=== PATIENT | female | born 1995 | race Caucasian/White ===

== ENCOUNTER 2018-01-03 21:29 | Emergency (ER) | payer OTHER ==
[2018-01-03 21:46] VITALS: BP 116/63
--- NOTE | 2018-01-03 21:58 | UC ---
Laceration HPI - HPI Summary HPI Summary: 22 yo female presents with laceration to left ring finger sustained 5 days ago. She tells me that she was using scissors and they slipped and sliced her finger. She went to [facility] and they glued it and bandaged it for her. She is here today because the glue came off and she feels the wound is still open. Has not had any fever/chills, drainage, bleeding, or pain. - History Of Current Complaint Chief Complaint: UCUpperExtremity Stated Complaint: FINGER LAC Time Seen by Provider: 01/03/18 21:55 Hx Obtained From: Patient Hx Last Menstrual Period: 12/17/17 Laceration Location: Finger Pain Intensity: 0 - Allergies/Home Medications Allergies/Adverse Reactions: Allergies Allergy/AdvReac Type Severity Reaction Status Date / Time No Known Allergies Allergy Verified 01/03/18 21:46 Home Medications: Home Medications NK [No Home Medications Reported] 01/03/18 [History Confirmed 01/03/18] PMH/Surg Hx/FS Hx/Imm Hx - Additional Past Medical History Additional PMH: None - Surgical History Surgical History: None - Family History Known Family History: Positive: None - Social History Occupation: Student Lives: With Family Alcohol Use: Weekly Substance Use Type: None Smoking Status (MU): Current Some Day Smoker Review of Systems Constitutional: Negative Skin: Other - Laceration left ring finger Respiratory: Negative Cardiovascular: Negative Neurovascular: Negative Musculoskeletal: Negative Neurological: Negative Psychological: Negative All Other Systems Reviewed And Are Negative: Yes Physical Exam - Summary Physical Exam Summary: GENERAL: NAD. WDWN. No pain distress. SKIN: LEFT RING FINGER: Dorsal aspect with 5mm linear laceration overlying the PIP approx 2mm in width with healed dermis. No streaking, bleeding, or drainage. NTTP NECK: Supple. Nontender. CHEST: No accessory muscle use. Breathing comfortably and in no distress. CV: Pulses intact. Cap refill <2seconds NEURO: Alert. PSYCH: Age appropriate behavior. Triage Information Reviewed: Yes Vital Signs: Initial Vital Signs Temp 98.9 F 01/03/18 21:41 Pulse 77 01/03/18 21:41 Resp 12 01/03/18 21:41 BP 116/63 01/03/18 21:41 Pulse Ox 99 01/03/18 21:41 Vital Signs Reviewed: Yes Laceration Repair - Laceration Repair 1 Description: Linear Laceration Size After Repair: Length (cm) - 0.5 Modified For Repair: No Cleansing Completed Via Routine Prep: Yes Closure Material: Skin Adhesive Laceration Course/Dx - Course/Dx Course Of Treatment: Wound was cleansed with 50mL NS. Dermabond applied and further approximated. Wound was bandaged with a band-aid and finger splint. - Differential Dx - Laceration/Wound Provider Diagnoses: Left ring finger laceration Discharge - Sign-Out/Discharge Documenting (check all that apply): Patient Departure All imaging exams completed and their final reports reviewed: No Studies - Discharge Plan Condition: Stable Disposition: HOME Patient Education Materials: Laceration (ED), Skin Adhesive Care (ED) Referrals: [facility],Ezequiel [Primary Care Provider] - Additional Instructions: If you develop a fever, shortness of breath, chest pain, new or worsening symptoms - please call your PCP or go to the ED. - Billing Disposition and Condition Condition: STABLE Disposition: Home - Attestation Statements Provider Attestation: Per institutional requirements, I have reviewed the chart, however, I was not consulted specifically or made aware of this patient by the midlevel provider. I did not personally evaluate, interact with , or disposition this patient.
== END 2018-01-03 22:05 | disposition home or self-care (01) ==
LOC: UCEAST 21:29
DX: S61.215A Laceration without foreign body of left ring finger without damage to nail, initial encounter (principal); F17.200 Nicotine dependence, unspecified, uncomplicated; W45.8XXA Other foreign body or object entering through skin, initial encounter; Y93.9 Activity, unspecified; Y92.9 Unspecified place or not applicable
CPT/HCPCS: 12001; 99201; G0463

== ENCOUNTER 2018-10-21 19:42 | Emergency (ER) | payer OTHER ==
[2018-10-21] MEDS ORDERED: NS 0.9% 1000 ML** 1,000 ML IV ONE (21:04)
[2018-10-21] MEDS ORDERED: Metoclopramide IV* 5 MG/ML 2 ML VIAL IV SLOW PU ONE (21:05)
[2018-10-21] MEDS ORDERED: diPHENhydraMINE IV* 50 MG/ML 1 ml VIAL (BENADRYL) SLOW PUSH ONE (21:05)
--- NOTE | 2018-10-21 21:06 | ED ---
Headache - HPI Summary HPI Summary: Patient is a 23 y/o F presenting to ED with complaints of ESTEVES onsetting around 1 hour ago today. She reports that she was [place] when Sx onset. Patient reports that ESTEVSE is at the posterior of her head. She notes that the initial ESTEVES severity was a 9/10. ESTEVES lessened in severity, and at present she rates ESTEVES 3/10. She denies N/V and fever. Patient reports a similar episode of ESTEVES two days ago, stating that this ESTEVES episode lasted 10 minutes and spontaneously resolved. She denies PMHx and any prior HAs otherwise. 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 Patient notes that movement of head aggravates her Sx. LNMP was two weeks ago. On triage, pain is rated 8/10. Home medications and allergies are reviewed. - History Of Current Complaint Chief Complaint: EDHeadache Stated Complaint: "HEADACHE PER PT" Time Seen by Provider: 10/21/18 20:54 Hx Obtained From: Patient Hx Last Menstrual Period: 12/17/17 Onset/Duration: Started hours ago, Still Present Initially Headache Was: Initial Pain Scale(0-10)= - 9/10, Severe Currently Pain Is: Current Pain Scale(0-10)= - 3/10, Mild Timing: Hours Location of Headache: Occipital Aggravating Factor: Nothing Allevating Factors: Other (Noted In Comments) - movement of head Associated Signs And Symptoms: Negative - Allergies/Home Medications Allergies/Adverse Reactions: Allergies Allergy/AdvReac Type Severity Reaction Status Date / Time No Known Allergies Allergy Verified 10/21/18 19:47 PMH/Surg Hx/FS Hx/Imm Hx Sensory History: Denies: Hx Legally Blind, Hx Deafness Opthamlomology History: Denies: Hx Legally Blind EENT History: Denies: Hx Deafness Infectious Disease History: No Infectious Disease History: Denies: Traveled Outside the [place] in Last 30 Days - Family History Known Family History: Negative: Diabetes - Social History Alcohol Use: Weekly Substance Use Type: Reports: None Smoking Status (MU): Current Some Day Smoker Review of Systems Negative: Fever Negative: Vomiting, Nausea Positive: Headache All Other Systems Reviewed And Are Negative: Yes Physical Exam - Summary Physical Exam Summary: VITAL SIGNS: Reviewed. GENERAL: Patient is a well-developed and nourished female who is lying comfortable in the stretcher. Patient is not in any acute respiratory distress. HEAD AND FACE: No signs of trauma. No ecchymosis, hematomas or skull depressions. No sinus tenderness. EYES: PERRLA, EOMI x 2, No injected conjunctiva, no nystagmus. EARS: Hearing grossly intact. Ear canals and tympanic membranes are within normal limits. MOUTH: Oropharynx within normal limits. NECK: Supple, trachea is midline, no adenopathy, no JVD, no carotid bruit, no c- spine tenderness, neck with full ROM CHEST: Symmetric, no tenderness at palpation LUNGS: Clear to auscultation bilaterally. No wheezing or crackles. CVS: Regular rate and rhythm, S1 and S2 present, no murmurs or gallops appreciated. ABDOMEN: Soft, non-tender. No signs of distention. No rebound no guarding, and no masses palpated. Bowel sounds are normal. EXTREMITIES: FROM in all major joints, no edema, no cyanosis or clubbing. NEURO: Alert and oriented x 3. No acute neurological deficits. Speech is normal and follows commands. GCS 15. SKIN: Dry and warm Triage Information Reviewed: Yes Vital Signs On Initial Exam: Initial Vitals Temp Pulse Resp BP Pulse Ox 98.0 F 92 16 110/85 100 10/21/18 19:44 10/21/18 19:44 10/21/18 19:44 10/21/18 19:44 10/21/18 19:44 Vital Signs Reviewed: Yes - Robin Coma Scale Best Eye Response: 4 - Spontaneous Best Motor Response: 6 - Obeys Commands Best Verbal Response: 5 - Oriented Coma Scale Total: 15 Diagnostics - Vital Signs Vital Signs Temp Pulse Resp BP Pulse Ox 10/21/18 19:44 98.0 F 92 16 110/85 100 - Laboratory Result Diagrams: 10/21/18 22:27 10/21/18 22:27 Lab Statement: Any lab studies that have been ordered have been reviewed, and results considered in the medical decision making process. - CT BRAIN CT CT Interpretation Completed By: Radiologist Summary of CT Findings: BRAIN CT IMPRESSION: No acute intracranial findings. Normal head CT. THIS REPORT WAS REVIEWED BY DR. THAO. Re-Evaluation - Re-Evaluation First Eval Re-Evaluation Time: 23:13 Comment: Results of labs and tests were discussed with the patient. Patient will be discharged to home and follow up with PCP within three days. Strict return precautions given. Patient agreeable with this plan. Headache Course/Dx - Course Course Of Treatment: Patient is a 23 y/o F presenting to ED with complaints of ESTEVES onsetting around 1 hour ago today. She reports that she was [place] when Sx onset. Patient reports that ESTEVES is at the posterior of her head. She notes that the initial ESTEVES severity was a 9/10. ESTEVES lessened in severity, and at present she rates ESTEVES 3/10. She denies N/V and fever. Physical exam is unremarkable. Labs were unremarkable. During ED course, patient received fluids , reglan 10 mg IV, toradol 15 mg IV, and Benadryl [address] IMPRESSION: No acute intracranial findings. Normal head CT. Results of labs and tests were discussed with the patient. Patient will be discharged to home and follow up with PCP within three days. Strict return precautions given. Patient agreeable with this plan. - Diagnoses Provider Diagnoses: Headache Discharge - Sign-Out/Discharge Documenting (check all that apply): Patient Departure - discharge Patient Received Moderate/Deep Sedation with Procedure: No - Discharge Plan Condition: Stable Disposition: HOME Patient Education Materials: General Headache (ED) Referrals: [facility] [Outside] - 3 Days Additional Instructions: RETURN TO ED FOR ANY NEW OR WORSENING SYMPTOMS. FOLLOW UP WITH YOUR PRIMARY CARE PHYSICIAN WITHIN THREE DAYS. - Attestation Statements Document Initiated by Isidra: Yes Documenting Scribe: DANIEL GREER Provider For Whom Isidra is Documenting (Include Credential): NICOLE THAO MD Scribe Attestation: DANIEL Ortega, linseyed for NICOLE THAO MD on 10/21/18 at 1225. Status of Scribe Document: Ready
[2018-10-21] MEDS ORDERED: Ketorolac INJ* 30 MG/ML 1 ML VIAL IV PUSH ONE (22:05)
[2018-10-21 22:37] LABS: ABS Eosinophils 0.3 10^3/ul (0-0.6); ABS Lymphocytes 2.2 10^3/ul (1.0-4.8); ABS Monocytes 0.5 10^3/ul (0-0.8); ABS Neutrophils 4.4 10^3/ul (1.5-7.7); Eosinophil % 3.5 %; Hematocrit 38 % (35-47); Hemoglobin 13.1 g/dL (12.0-16.0); Lymphocyte % 29.5 %; Mean Corpuscular HGB Conc 35 g/dL (31-36); Mean Corpuscular Hemoglobin 31 pg (27-31); Mean Corpuscular Volume 90 fL (80-97); Mean Platelet Volume 9.1 fL (7.4-10.4); Nucleated Red Blood Cells % 0.1; Platelet Count 151 10^3/uL (150-450); Red Blood Count 4.22 10^6 /uL (3.70-4.87); Red Cell Distribution Width 13 % (10-15); White Blood Count 7.3 10^3/uL (3.5-10.8)
[2018-10-21 22:55] LABS: ALT 10 U/L (7-52); AST 13 U/L (13-39); Albumin 4.6 g/dL (3.2-5.2); Albumin/Globulin Ratio 1.8 (1-3); Alkaline Phosphatase 50 U/L (34-104); Anion Gap 6 mmol/L (2-11); Blood Urea Nitrogen 11 mg/dL (6-24); CO2 Carbon Dioxide 25 mmol/L (22-32); Chloride 107 mmol/L (101-111); EGFR African American 144.6 (>60); EGFR Non-African American 119.5 (>60); Globulin 2.5 g/dL (2-4); Glucose 98 mg/dL (70-100); Potassium 3.7 mmol/L (3.5-5.0); Sodium 138 mmol/L (135-145); Total Protein 7.1 g/dL (6.4-8.9)
[2018-10-21 23:02] LABS: HCG Pregnancy < 0.60 mIU/mL
[2018-10-21 23:35] VITALS: BP 99/59
== END 2018-10-21 23:33 | disposition home or self-care (01) ==
LOC: ED 19:42
DX: R51 Headache (principal); F17.210 Nicotine dependence, cigarettes, uncomplicated
CPT/HCPCS: 36415; 70450; 80053; 84702; 85025; 85730; 96361; 96374; 96375; 99282; J1200; J1885; J2765